=== PATIENT | female | born 1990 | race Caucasian/White ===

== ENCOUNTER 2016-06-15 22:50 | Outpatient (CLI) | payer SELFPAY ==
[~2016-06-15] VITALS: Ht 162.6 cm; Wt 103.4 kg
[2016-06-15 23:09] VITALS: Ht 162.6 cm; Wt 103.4 kg
[2016-06-15] MEDS ORDERED: FOLI0.8C PO (23:09)
[2016-06-15] MEDS ORDERED: PREN1TAB79 PO (23:09)
[2016-06-15 23:10] VITALS: BP 113/59; PULSE 77; RESP 20
[2016-06-16 00:20] LABS: ADD UMIC YES; URINE BILIRUBIN (Dip) NEGATIVE (NEGATIVE); URINE BLOOD (Dip) TRACE (NEGATIVE); URINE COLOR LT. YELLOW (YELLOW); URINE GLUCOSE (Dip) NEGATIVE (NEGATIVE); URINE KETONES (Dip) NEGATIVE (NEGATIVE); URINE LEUKOCYTE ESTERASE (Dip) TRACE (NEGATIVE); URINE NITRITE (Dip) NEGATIVE (NEGATIVE); URINE TOTAL PROTEIN (Dip) NEGATIVE (NEGATIVE); URINE UROBILINOGEN (Dip) 0.2 E.U./dL (0.1-1.0)
[2016-06-16 00:27] LABS: BACTERIA,URINE RARE; SQUAMOUS EPITHELIAL CELL,UR RARE; URINE RBCS 0-2 /HPF (0)
[2016-06-16 00:57] LABS: BASOPHILS % 0.3 % (0.0-2.0); EOSINOPHILS # 0.1 10^3/ul (0.0-0.5); EOSINOPHILS % 0.5 % (0.0-7.0); HEMATOCRIT 33.8 % (37.0-47.0); HEMOGLOBIN 11.2 g/dl (12.0-16.0); MEAN CORPUSCULAR HEMOGLOBIN 26.4 pg (29.0-33.0); MEAN CORPUSCULAR HGB CONC 33.2 g/dl (32.0-37.0); MEAN CORPUSCULAR VOLUME 79.3 fl (82.0-101.0); MEAN PLATELET VOLUME 8.6 fl (7.4-10.4); MONOCYTE # 0.7 10^3/ul (0.3-0.9); MONOCYTES % 6.5 % (0.0-11.0); NEUTROPHIL # 7.6 10^3/ul (1.6-7.5); NEUTROPHILS % 73.7 % (39.0-77.0); PLATELET COUNT 243 10^3/UL (140-440); RED BLOOD COUNT 4.26 10^6/ul (4.20-5.40); RED CELL DISTRIBUTION WIDTH 15.4 % (11.5-14.5); UNCORRECTED WBC 10.3 10^3/ul (4.8-10.8); WHITE BLOOD COUNT 10.3 10^3/ul (4.8-10.8)
[2016-06-16 01:01] LABS: CONDITION 1; LH ANALYZER COMMENTS 1
--- NOTE | 2016-06-16 01:51 | RADRPT ---
PROCEDURE: Obstetrical ultrasound, limited. CLINICAL INDICATION: Pelvic pain. TECHNIQUE: Multiple sonographic images of the pelvis were obtained using transabdominal technique . Images were obtained with baird scale and color Doppler. The images were reviewed on a PACS works tation. COMPARISON: No prior studies are available for comparison. FINDINGS: There is a single living intrauterine gestation with the fetus in a vertex presentation. hear t tones of 141 beats per minute are identified. The placenta is posterior in location, grade 1-2. There is normal amniotic fluid volume with an TONI of 13.2 cm. There is no evidence of placenta prev ia or abruption. Measurements were made in order to determine age. The results are as follows: BPD =8.23 cm HC =31.53 cm AC =32.67 cm FL =6.95 cm. Estimated gestational age of approximately 35 weeks and 2 days. The estimated date of delivery is 07/19/2016. The EFW = 3776 +/- 416 grams. Estimated weight percentage equals 60.1%. IMPRESSION: Single viable intrauterine gestation of approximately 35 weeks and 2 days, with an ultrasound DREA of 07/19/2016. .Mike Peter MD, MD Date Time Electronically viewed and signed by .Mike Peter MD, MD on 06/16/2016 01:51 .T/
== END 2016-06-16 02:38 | disposition home or self-care (01) ==
LOC: L-D 22:50 → OBT 22:50
PROVIDERS: ATTEND Obstetrics & Gynecology
DX: O26.893 Other specified pregnancy related conditions, third trimester (principal); M54.9 Dorsalgia, unspecified; R10.2 Pelvic and perineal pain; O60.03 Preterm labor without delivery, third trimester; Z3A.35 35 weeks gestation of pregnancy
CPT/HCPCS: 76815; 81001; 85025; G0463; 81003

== ENCOUNTER 2016-07-17 13:46 | Outpatient (CLI) | payer MEDICAID ==
[~2016-07-17] VITALS: Ht 160 cm; Wt 107.3 kg
[~2016-07-17 13:46] MED LIST: FOLI0.8C PO; PREN1TAB79 PO
[2016-07-17 14:04] VITALS: Ht 160 cm; Wt 107.3 kg
--- NOTE | 2016-07-18 04:01 | PN ---
DATE: SUBJECTIVE: A 25-year-old at 39 weeks complaining of uterine contractions. OBJECTIVE: NST is reactive. Vitals within normal limits. ASSESSMENT: End-stage at 39 weeks, false labor. PLAN: The patient will be discharged home. Follow up with [facility] within 1 week. Dictated By: DEVENDRA PLASENCIA MD /NTS Conf#: [id number] DID#: [id number]
== END 2016-07-17 15:35 | disposition home or self-care (01) ==
LOC: OBT 13:46 → L-D 13:46 → OBT 15:35
PROVIDERS: ATTEND Obstetrics & Gynecology
DX: O47.1 False labor at or after 37 completed weeks of gestation (principal); Z3A.39 39 weeks gestation of pregnancy
CPT/HCPCS: G0463

== ENCOUNTER 2016-07-18 18:59 | Outpatient (CLI) | payer MEDICAID ==
[~2016-07-18] VITALS: Ht 165.1 cm; Wt 108.0 kg
[2016-07-18 19:28] VITALS: Ht 165.1 cm; Wt 108.0 kg
[2016-07-18 19:29] VITALS: BP 109/66; PULSE 78; RESP 18
[2016-07-18 20:50] LABS: BASOPHILS % 0.3 % (0.0-2.0); EOSINOPHILS # 0.1 10^3/ul (0.0-0.5); EOSINOPHILS % 0.9 % (0.0-7.0); HEMATOCRIT 34.4 % (37.0-47.0); HEMOGLOBIN 11.5 g/dl (12.0-16.0); LYMPHOCYTES # 1.8 10^3/ul (0.8-2.9); LYMPHOCYTES % 18.7 % (15.0-51.0); MEAN CORPUSCULAR HEMOGLOBIN 26.4 pg (29.0-33.0); MEAN CORPUSCULAR HGB CONC 33.3 g/dl (32.0-37.0); MEAN CORPUSCULAR VOLUME 79.2 fl (82.0-101.0); MEAN PLATELET VOLUME 8.7 fl (7.4-10.4); MONOCYTE # 0.7 10^3/ul (0.3-0.9); NEUTROPHIL # 6.9 10^3/ul (1.6-7.5); NEUTROPHILS % 73.1 % (39.0-77.0); PLATELET COUNT 214 10^3/UL (140-440); RED BLOOD COUNT 4.34 10^6/ul (4.20-5.40); RED CELL DISTRIBUTION WIDTH 16.4 % (11.5-14.5); UNCORRECTED WBC 9.4 10^3/ul (4.8-10.8); WHITE BLOOD COUNT 9.4 10^3/ul (4.8-10.8)
[2016-07-18 20:56] LABS: CONDITION 1; LH ANALYZER COMMENTS 1
[2016-07-18] MEDS ORDERED: LACTATED RINGER'S 1,000 ML IV SCH (21:00)
--- NOTE | 2016-07-18 22:09 | RADRPT ---
PROCEDURE: US OB. CLINICAL INDICATION: Uterine contractions TECHNIQUE: Pelvic ultrasound performed for biophysical profile. COMPARISON: 06/16/2016 FINDINGS: Single intrauterine gestation present with heart rate at 146 beats per minute. Presentation is ceph alic. Placenta is the fundal, grade II. Biophysical profile score is 8/8 (breathing=2, movement=2, tone =2, fluid volume=2). Amniotic fluid volume is within lower normal limits, with TONI = 7.38 cm. RPTAT:HJJR IMPRESSION: Biophysical profile score 8/8. Amniotic fluid index is low normal at 7.38 cm, previously 13.16 cm on the study of 06/16/2016. Physician Janee Date Time Electronically viewed and signed by Augustine Heredia Physician on 07/18/2016 22:09 /
--- NOTE | 2016-07-18 22:33 | RADRPT ---
PROCEDURE: Obstetrical ultrasound greater than 14 weeks CLINICAL INDICATION: Bleeding TECHNIQUE: Real time sonographic imaging of the gravid uterus is performed transabdominally and mu ltiple static baird scale and Doppler images are submitted for review as are measurements. The image s are reviewed on the PACS. COMPARISON: 06/16/2016 FINDINGS: There is a single living intrauterine gestation in cephalic presentation. The heart beat is estimated at 148 bpm. The measurements are as follows: BPD:9.10 cm HC:33.89 cm AC:34.76 cm FL:7.31 cm Estimated gestational age is 38 weeks 1 day, appropriate growth compared to the prior study. The es timated date of delivery is 07/31/2016. The estimated weight is 3456 grams. Placenta is fundal and grade2. There is no evidence of placenta previa or abruption. anatomic survey is performed and shows no abnormality, the three-vessel cord and cord insertio n are unremarkable. The amniotic fluid index is normal estimated at 7.78 cm. RPTAT:HJJR IMPRESSION: 1. Single viable intrauterine gestation in cephalic presentation estimated at 38 weeks 1 day with th e estimated date of delivery 07/31/2016. 2. Estimated weight 3456 g, approximately the 36th percentile for age. Physician Janee Date Time Electronically viewed and signed by Physician Janee on 07/18/2016 22:32 /
--- NOTE | 2016-07-19 00:55 | TRIAGE ---
OB Triage Datetime Report Generated by CPN: 07/19/2016 00:55 Datetime: 07/18/2016 23:00 Stage of : OB Triage Labor Evaluation Frequency: IRREGULAR Monitor Mode: External Duration (sec)2399: 60-100 Quality: Mild Pattern: Normal: <= 5 Contractions in 10 Minutes Resting Tone [place]: Relaxed Heart Rate FHR Baseline Rate: 135 Monitor Mode: External US FHR Baseline Changes: No Baseline Change Variability: Moderate 6-25 bpm Accelerations: 15X15 Decelerations: None Category: Category I Datetime: 07/18/2016 22:39 Stage of : OB Triage Datetime: 07/18/2016 22:24 Vaginal Exam Dilatation (cms): 1.0 Effacement (%): 30 Station: -3 Exam By: Kimberlyn JOHNSON RN Vaginal Bleeding: Scant Cervix, Consistency: Firm Cervix, Position: Posterior Datetime: 07/18/2016 22:00 Stage of : OB Triage Labor Evaluation Frequency: IRREGULAR Monitor Mode: External Duration (sec)2399: 60-100 Quality: Mild Pattern: Normal: <= 5 Contractions in 10 Minutes Resting Tone [place]: Relaxed Heart Rate FHR Baseline Rate: 135 Monitor Mode: External US FHR Baseline Changes: No Baseline Change Variability: Moderate 6-25 bpm Accelerations: 15X15 Decelerations: None Category: Category I Datetime: 07/18/2016 21:00 Labor Evaluation Frequency: IRREGULAR Monitor Mode: External Duration (sec)2399: 60-100 Quality: Mild Pattern: Normal: <= 5 Contractions in 10 Minutes Resting Tone [place]: Relaxed Heart Rate FHR Baseline Rate: 135 Monitor Mode: External US FHR Baseline Changes: No Baseline Change Variability: Moderate 6-25 bpm Accelerations: 15X15 Decelerations: None Category: Category I Datetime: 07/18/2016 20:03 Stage of : OB Triage Datetime: 07/18/2016 20:00 Labor Evaluation Frequency: 1-4 Monitor Mode: External Duration (sec)2399: 60-120 Quality: Mild Pattern: Normal: <= 5 Contractions in 10 Minutes Resting Tone [place]: Relaxed Heart Rate FHR Baseline Rate: 125 Monitor Mode: External US FHR Baseline Changes: No Baseline Change Variability: Moderate 6-25 bpm Accelerations: 15X15 Decelerations: None Category: Category I Datetime: 07/18/2016 19:46 Stage of : OB Triage Datetime: 07/18/2016 19:15 Stage of : OB Triage Assessment Type: Triage Time of Arrival: 07/18/2016 19:00 EGA: 40.0 Arrived By: Wheelchair Arrived From: Home Chief Complaint: C/O BLEEDING SINCE YESTERDAY MUCH A PERIOD VAGINAL EXAM NOT DONE @ THIS LEAT[facility] E , NO BLOOD NOTED ON PERINEUM , C/O CONTRACTIONS Movement: Present Contractions: Irregular Rupture of Membranes: Denies Vaginal Bleeding: None Vaginal Discharge: Present Recent Sexual Intercouse: Denies Abdominal Trauma: Not Applicable Patient Complaints: None Time Provider Notified: 07/18/2016 19:46 Provider Notified: DR LINO Initial Plan: CALL [facility] Maternal Assessment Level of Consciousness: Fully Conscious DTR's/Clonus: DTRs 2+; No Clonus Headache: Denies Blurred Vision: No Respiratory Effort: Unlabored; Regular Rhythm; Equal Expansion Breath Sounds, Left: Clear and Equal Breath Sounds, Right: Clear and Equal Nausea/Vomiting: Denies RUQ Epigastric Pain: Denies Lower Extremities Edema: None Degree: None Upper Extremities Edema: None Degree: None Facial Edema: None Temperature Route: Oral Fall Risk Assessment History of Falling: (0) No Secondary Diagnosis: (0) No Ambulatory Aid: (0) Bedrest/Nurse Assist IV Therapy: (0) No Gait: (0) Normal/Bedrest/Immobile Mental Status: (0) Oriented to Own Ability Fall Score: 0 Fall Risk Score Definition: No Risk: No action required Monitor Mode: External Monitor Mode: External US Pain Assessment Pain Scale: 8 Pain Presence: Intermittent Pain Type: Cramping Pain Location: Abdomen; Back Datetime: 07/17/2016 15:25 Stage of : OB Triage Datetime: 07/17/2016 15:18 Vaginal Exam Dilatation (cms): 1.0 Effacement (%): 60 Station: -2 Exam By: Perlita TAYLOR Vaginal Bleeding: None Cervix, Consistency: Soft Cervix, Position: Posterior Presentation 'A': Cephalic Datetime: 07/17/2016 14:55 Labor Evaluation Frequency: OCCAS Monitor Mode: External Duration (sec)2399: 50-60 Pattern: Normal: <= 5 Contractions in 10 Minutes Resting Tone [place]: Relaxed Heart Rate FHR Baseline Rate: 135 Monitor Mode: External US Variability: Moderate 6-25 bpm Decelerations: None Category: Category I Pain Assessment Pain Scale: 5 Pain Presence: Intermittent Pain Type: Cramping Pain Goal: 3 Pain Relief Measures: Comfort Measures Datetime: 07/17/2016 14:27 Stage of : OB Triage Datetime: 07/17/2016 13:58 Stage of : OB Triage Assessment Type: Triage Maternal Assessment Level of Consciousness: Fully Conscious DTR's/Clonus: DTRs 2+; No Clonus Headache: Denies Blurred Vision: No Respiratory Effort: Unlabored; Regular Rhythm; Equal Expansion Breath Sounds, Left: Clear and Equal Breath Sounds, Right: Clear and Equal Nausea/Vomiting: Denies RUQ Epigastric Pain: Denies Facial Edema: None Temperature Route: Axillary Fall Risk Assessment History of Falling: (0) No Secondary Diagnosis: (0) No Ambulatory Aid: (0) Bedrest/Nurse Assist IV Therapy: (0) No Gait: (0) Normal/Bedrest/Immobile Mental Status: (0) Oriented to Own Ability Fall Score: 0 Fall Risk Score Definition: No Risk: No action required Labor Evaluation Frequency: APPLIED Monitor Mode: External Resting Tone [place]: Relaxed Interventions: Sterile Vaginal Exam Heart Rate FHR Baseline Rate: 135 Monitor Mode: External US Variability: Moderate 6-25 bpm Decelerations: None Category: Category I Pain Assessment Pain Scale: 6 Pain Presence: Intermittent Pain Type: Cramping; Contraction Pain Location: Abdomen Pain Goal: 3 Pain Relief Measures: Comfort Measures Vaginal Exam Dilatation (cms): 1.0 Effacement (%): 60 Station: -2 Exam By: Perlita CLAUDIA Membrane Status: Intact Datetime: 07/17/2016 13:56 Time of Arrival: 07/17/2016 13:45 EGA: 39.6 Arrived By: Ambulatory Arrived From: Home Chief Complaint: C/O UC'S Q 10 SINCE YESTERDAY AFTERNOON, BLEEDING, DENIES LEAKING OF FLUID Movement: Present Contractions: Regular Contractions: Q10 Rupture of Membranes: Denies Vaginal Bleeding: Small Vaginal Discharge: Denies Recent Sexual Intercouse: Denies Abdominal Trauma: Not Applicable Patient Complaints: Contractions; Cramping Time Provider Notified: 07/17/2016 14:27 Provider Notified: HO[place] Initial Plan: MONITOR, VE, OBS X 1 HOUR Datetime: 06/16/2016 02:23 Stage of : OB Triage Labor Evaluation Frequency: Irregular Monitor Mode: External Duration (sec)2399: 40-70 Quality: Mild Pattern: Normal: <= 5 Contractions in 10 Minutes Resting Tone [place]: Relaxed Heart Rate FHR Baseline Rate: 120 Monitor Mode: External US FHR Baseline Changes: No Baseline Change Variability: Minimal - Undetectable to <=5 bpm Accelerations: 15X15 Decelerations: Variable Category: Category II Datetime: 06/16/2016 02:02 Stage of : OB Triage Datetime: 06/16/2016 02:00 Vaginal Exam Dilatation (cms): 0.0 Effacement (%): 0 Station: -4 Exam By: BELLE [place] Membrane Status: Intact Vaginal Bleeding: None Cervix, Consistency: Soft Cervix, Position: Posterior Datetime: 06/16/2016 01:30 Stage of : OB Triage Labor Evaluation Frequency: Occasional Monitor Mode: External Duration (sec)2399: 40-60 Quality: Mild Pattern: Normal: <= 5 Contractions in 10 Minutes Resting Tone [place]: Relaxed Heart Rate FHR Baseline Rate: 120 Monitor Mode: External US FHR Baseline Changes: No Baseline Change Variability: Moderate 6-25 bpm Accelerations: 15X15 Decelerations: None Category: Category I Datetime: 06/16/2016 00:30 Stage of : OB Triage Labor Evaluation Frequency: Occasional Monitor Mode: External Duration (sec)2399: 40-60 Quality: Mild Pattern: Normal: <= 5 Contractions in 10 Minutes Resting Tone [place]: Relaxed Heart Rate FHR Baseline Rate: 120 Monitor Mode: External US FHR Baseline Changes: No Baseline Change Variability: Moderate 6-25 bpm Accelerations: 15X15 Decelerations: None Category: Category I Datetime: 06/15/2016 23:40 Stage of : OB Triage Datetime: 06/15/2016 23:30 Stage of : OB Triage Labor Evaluation Frequency: x1 Monitor Mode: External Duration (sec)2399: 40 Quality: Mild Pattern: Normal: <= 5 Contractions in 10 Minutes Resting Tone [place]: Relaxed Heart Rate FHR Baseline Rate: 120 Monitor Mode: External US Variability: Minimal - Undetectable to <=5 bpm Accelerations: 15X15 Decelerations: None Category: Category II Datetime: 06/15/2016 23:06 Membrane Status: Intact Datetime: 06/15/2016 23:04 Stage of : OB Triage Assessment Type: Triage Maternal Assessment Level of Consciousness: Fully Conscious DTR's/Clonus: DTRs 2+; No Clonus Headache: Denies Blurred Vision: No Respiratory Effort: Unlabored; Regular Rhythm; Equal Expansion Breath Sounds, Left: Clear and Equal Breath Sounds, Right: Clear and Equal Nausea/Vomiting: Denies RUQ Epigastric Pain: Denies Lower Extremities Edema: None Degree: None Upper Extremities Edema: None Degree: None Facial Edema: None Temperature Route: Oral Fall Risk Assessment History of Falling: (0) No Secondary Diagnosis: (0) No Ambulatory Aid: (0) Bedrest/Nurse Assist IV Therapy: (0) No Gait: (0) Normal/Bedrest/Immobile Mental Status: (0) Oriented to Own Ability Fall Score: 0 Fall Risk Score Definition: No Risk: No action required Pain Assessment Pain Scale: 8 Pain Presence: Constant Pain Type: Ache Pain Location: Back Pain Relief Measures: Comfort Measures Datetime: 06/15/2016 23:02 EGA: 35.2 Datetime: 06/15/2016 22:59 Time of Arrival: 06/15/2016 22:45 Arrived By: Ambulatory Arrived From: Home Chief Complaint: Constant back pain Movement: Present Contractions: Denies/Absent Rupture of Membranes: Denies Vaginal Bleeding: None Vaginal Discharge: Denies Recent Sexual Intercouse: Denies Abdominal Trauma: Not Applicable Patient Complaints: Back Pain Time Provider Notified: 06/15/2016 23:40 Provider Notified: Initial Plan: UA, CBC, U/S for EFW _ TONI Datetime: 06/15/2016 22:57 Stage of : OB Triage Monitor Mode: External Contraction Comments: [place] applied Heart Rate FHR Baseline Rate: 120 Monitor Mode: External US Comments: EFM applied
== END 2016-07-18 22:39 | disposition home or self-care (01) ==
LOC: OBT 18:59 → L-D 19:00 → OBT 22:39
PROVIDERS: ATTEND Obstetrics & Gynecology
DX: O47.1 False labor at or after 37 completed weeks of gestation (principal); Z3A.40 40 weeks gestation of pregnancy
CPT/HCPCS: 36415; 76815; 76818; 85025; 85384; 96360; J7120; Z7500; G0463

== ENCOUNTER 2016-07-21 15:40 | Inpatient (IN) | payer MEDICAID ==
[~2016-07-21] VITALS: Ht 162.6 cm; Wt 109.0 kg
[2016-07-21 15:57] VITALS: BP 114/63; PULSE 81; RESP 18; Ht 162.6 cm; Wt 109.0 kg
--- NOTE | 2016-07-21 17:11 | TRIAGE ---
OB Triage Datetime Report Generated by CPN: 07/21/2016 17:10 Datetime: 07/21/2016 16:30 Stage of : OB Triage Maternal Assessment Level of Consciousness: Fully Conscious Labor Evaluation Frequency: IRREGULAR Monitor Mode: External Duration (sec)2399: 30-60 Quality: Moderate Resting Tone [place]: Relaxed Heart Rate FHR Baseline Rate: 135 Monitor Mode: External US Variability: Moderate 6-25 bpm Accelerations: 15X15 Decelerations: None Pain Assessment Pain Scale: 5 Pain Presence: Intermittent Pain Type: Cramping Pain Location: Abdomen Pain Goal: 3 Pain Relief Measures: Comfort Measures Membrane Status: Intact Vaginal Bleeding: None Datetime: 07/21/2016 16:02 Vaginal Exam Dilatation (cms): 2.0 Effacement (%): 60 Station: -2 Exam By: preston Vaginal Bleeding: None Cervix, Consistency: Moderate Cervix, Position: Midposition Datetime: 07/21/2016 15:54 Assessment Type: Triage Maternal Assessment Level of Consciousness: Fully Conscious DTR's/Clonus: DTRs 2+; No Clonus Headache: Denies Blurred Vision: No Respiratory Effort: Unlabored; Regular Rhythm; Equal Expansion Breath Sounds, Left: Clear and Equal Breath Sounds, Right: Clear and Equal Nausea/Vomiting: Denies RUQ Epigastric Pain: Denies Lower Extremities Edema: None Degree: None Upper Extremities Edema: None Degree: None Facial Edema: None Fall Risk Assessment History of Falling: (0) No Secondary Diagnosis: (0) No Ambulatory Aid: (0) Bedrest/Nurse Assist IV Therapy: (0) No Gait: (0) Normal/Bedrest/Immobile Mental Status: (0) Oriented to Own Ability Fall Score: 0 Fall Risk Score Definition: No Risk: No action required Datetime: 07/21/2016 15:53 Time of Arrival: 07/21/2016 15:35 EGA: 40.3 Arrived By: Ambulatory Arrived From: Home Chief Complaint: c/o UC'S AND VAG. SPOTTING Movement: Present Contractions: Irregular Time Contractions Began: 07/21/2016 03:00 Rupture of Membranes: Denies Vaginal Discharge: Denies Recent Sexual Intercouse: Denies Abdominal Trauma: Not Applicable Patient Complaints: Contractions; Cramping; Back Pain Provider Notified: [facility] Initial Plan: EFM, SVE, BPP Datetime: 07/18/2016 19:15 EGA: 40.0 Fall Score: 0 Fall Risk Score Definition: No Risk: No action required Datetime: 07/17/2016 13:58 Fall Score: 0 Fall Risk Score Definition: No Risk: No action required Datetime: 07/17/2016 13:56 EGA: 39.6 Datetime: 06/15/2016 23:04 Fall Score: 0 Fall Risk Score Definition: No Risk: No action required Datetime: 06/15/2016 23:02 EGA: 35.2
--- NOTE | 2016-07-21 17:16 | RADRPT ---
PROCEDURE: OB ultrasound for biophysical profile CLINICAL INDICATION: Biophysical profile. . TECHNIQUE: Multiple sonographic images of the pelvis were obtained. Transabdominal view of the gr avid uterus are available for review. The images were reviewed on a PACS workstation. COMPARISON: OB ultrasound 07/18/2016 FINDINGS: Single intrauterine gestation. Presentation: cephalic. Placenta: Fundal - right breathing movement = 2/2 tone = 2/2 motion = 2/2 TONI = 2/2 TONI = 9.8 cm heart rate: 150 beats per minute IMPRESSION: Single intrauterine gestation. Biophysical profile 01/18, unchanged RPTAT: AADD .Arnulfo Davis MD, MD Date Time Electronically viewed and signed by .Arnulfo Davis MD, on 07/21/2016 17:15 .B/
[2016-07-21] MEDS ORDERED: LACTATED RINGER'S 1,000 ML IV PRN (17:38)
[2016-07-21] MEDS: LACTATED RINGER'S 1,000 ML IV SCH ×2 (17:55→21:47)
[2016-07-21] MEDS ORDERED: MISOPROSTOL 200 MCG TAB PR PRN (18:00)
[2016-07-21] MEDS ORDERED: OXYTOCIN 30 UNITS/LR 500 ML IV PRN (18:00)
[2016-07-21] MEDS ORDERED: METHYLERGONOVINE 0.2 MG INJ IM PRN (18:00)
[2016-07-21] MEDS ORDERED: OXYTOCIN 30 UNITS/LR 500 ML IV SCH ×2 (18:00)
[2016-07-21] MEDS ORDERED: IBUPROFEN 600 MG TAB PO PRN (18:00)
[2016-07-21] MEDS ORDERED: LIDOCAINE 1% (MPF) 30 ML INJ INJ PRN (18:00)
[2016-07-21] MEDS ORDERED: CARBOPROST 250 MCG INJ IM PRN (18:00)
[2016-07-21] MEDS ORDERED: BUTORPHANOL 2 MG INJ IV PRN (18:00)
[2016-07-21 18:15] LABS: BASOPHILS % 0.4 % (0.0-2.0); EOSINOPHILS # 0.1 10^3/ul (0.0-0.5); EOSINOPHILS % 0.8 % (0.0-7.0); HEMATOCRIT 35.5 % (37.0-47.0); HEMOGLOBIN 11.8 g/dl (12.0-16.0); LYMPHOCYTES # 1.6 10^3/ul (0.8-2.9); LYMPHOCYTES % 19.2 % (15.0-51.0); MEAN CORPUSCULAR HEMOGLOBIN 26.5 pg (29.0-33.0); MEAN CORPUSCULAR HGB CONC 33.3 g/dl (32.0-37.0); MEAN CORPUSCULAR VOLUME 79.5 fl (82.0-101.0); MEAN PLATELET VOLUME 8.5 fl (7.4-10.4); MONOCYTE # 0.6 10^3/ul (0.3-0.9); MONOCYTES % 7.1 % (0.0-11.0); NEUTROPHILS % 72.5 % (39.0-77.0); PLATELET COUNT 209 10^3/UL (140-440); RED BLOOD COUNT 4.46 10^6/ul (4.20-5.40); RED CELL DISTRIBUTION WIDTH 16.4 % (11.5-14.5); UNCORRECTED WBC 8.3 10^3/ul (4.8-10.8); WHITE BLOOD COUNT 8.3 10^3/ul (4.8-10.8)
[2016-07-21 18:16] LABS: CONDITION 1; LH ANALYZER COMMENTS 1
[2016-07-21 18:35] LABS: INR 0.93; PARTIAL THROMBOPLASTIN TIME 28.2 Sec (25.0-35.0); PROTIME 12.5 Sec (12.2-14.2)
[2016-07-21] MEDS ORDERED: FENTAnyl 2MCG/ML-ROPIV 0.2% 100 ML ONE (20:07)
[2016-07-21] MEDS ORDERED: NALOXONE (0.4 MG/ML) INJ IV PRN (21:30)
[2016-07-22] MEDS: FENTAnyl 2MCG/ML-ROPIV 0.2% 100 ML BAG EPI SCH ×2 (00:44→06:07)
[2016-07-22] MEDS: LACTATED RINGER'S 1,000 ML IV SCH (04:24)
--- NOTE | 2016-07-22 08:26 | HP ---
Date/Time of Note Date/Time of Note DATE: 07/22/16 TIME: 08:23 OB - History Hx of Present Chief Complaint: contractions Last Menstrual Period: October 12, 2015 Estimated Due Date: Jul 18, 2016 : 2 Para: 1 Spontaneous : 0 Therapeutic : 0 Care: Good Care Ultrasounds: Normal mid trimester US Obstetrical Complications: None Medical Complications: None Past Family/Social History * Past Medical, Surgical, Family and Obstetric Histories reviewed from chart. GBS Status: Negative OB Admission Exam Vital Signs Vital Signs Vital Signs Date Time Temp Pulse Resp B/P Pulse Ox O2 Delivery O2 Flow Rate FiO2 07/21/16 15:57 98.3 81 18 114/63 98 Room Air Physical Exam HEENT: WNL Heart: Rhythm Normal Lungs: Clear Abdomen: WNL Extremities: Normal Cervical Dilatation: 3cm Effacement: 50% Station: -1 Membranes: Intact Heart Rate: 130's Accelerations: Accelerations Present Decelerations: No Decelerations Varibility: Moderate Last 72 hours Lab Results CBC & BMP 07/21/16 18:00 OB Assessment/Plan Reason for admission: active labor Plan: Expectant Management JONG SALAZAR MD Jul 22, 2016 08:26
--- NOTE | 2016-07-22 08:28 | LDN ---
Date/Time of Note Date/Time of Note DATE: 07/22/16 TIME: 08:26 Delivery Summary over intact perineum Placenta Delivered: Spontaneously Meconium: Light Perineum intact?: No Anesthesia type: Epidural Estimated blood loss: 300 Sponge & Needle done & correct: Yes All needle counts correct: Yes Any foreign bodies felt in the: No Problems: Delivery Information Sex Infant Sex: female Apgars 1 Minute: 9 5 Minute: 9 Suctioning Nose & mouth suctioned at emeli: Yes Delee suction performed: No Umbilical Cord Umbilical cord with: 3 Vessels Cord presentations: no nuchal cord Cord Blood was obtained: Yes Mother & Baby Disposition Disposition Mom & Baby to Maternity; Good: Yes JONG SALAZAR MD Jul 22, 2016 08:28
[2016-07-22] MEDS ORDERED: LACTATED RINGER'S 1,000 ML IV* SCH (09:58)
[2016-07-22] MEDS ORDERED: ACETAMINOPHEN 325 MG TAB PO PRN (10:00)
[2016-07-22] MEDS ORDERED: WITCH HAZEL/GLYCERIN PAD PR PRN (10:00)
[2016-07-22] MEDS ORDERED: ACETAMINOPHEN/CODEINE #3 TAB PO PRN (10:00)
[2016-07-22] MEDS ORDERED: METHYLERGONOVINE 0.2 MG INJ IM PRN (10:00)
[2016-07-22] MEDS ORDERED: DIBUCAINE 1% 30 GM OINT PR PRN (10:00)
[2016-07-22] MEDS ORDERED: OXYTOCIN 30 UNITS/LR 500 ML IV PRN (10:00)
[2016-07-22] MEDS ORDERED: MISOPROSTOL 200 MCG TAB PR PRN (10:00)
[2016-07-22] MEDS ORDERED: CARBOPROST 250 MCG INJ IM PRN (10:00)
[2016-07-22] MEDS ORDERED: BENZOCAINE 20% 56 ML SPRAY TOP PRN (10:00)
[2016-07-22 10:30] VITALS: BP 117/82; PULSE 94; RESP 18
[2016-07-22] MEDS: IBUPROFEN 600 MG TAB PO SCH ×2 (11:29→17:48)
[2016-07-22 11:30] VITALS: BP 123/73; PULSE 80; RESP 18
[2016-07-22 16:05] VITALS: BP 111/84; PULSE 87; RESP 17
[2016-07-22 19:45] VITALS: BP 101/65; RESP 19
[2016-07-22] MEDS: SENNA/DOCUSATE NA (8.6MG/50MG) TAB PO SCH (20:57)
[2016-07-23] MEDS: IBUPROFEN 600 MG TAB PO SCH ×5 (00:01→23:48)
[2016-07-23 00:05] VITALS: BP 111/69; PULSE 98; RESP 19
[2016-07-23 04:10] VITALS: BP 101/54; PULSE 65; RESP 18
[2016-07-23 06:36] LABS: ADD SCAN DIFF NO
[2016-07-23 06:39] LABS: BASOPHILS % 0.2 % (0.0-2.0); EOSINOPHILS # 0.1 10^3/ul (0.0-0.5); EOSINOPHILS % 0.9 % (0.0-7.0); HEMATOCRIT 28.5 % (37.0-47.0); HEMOGLOBIN 9.1 g/dl (12.0-16.0); LYMPHOCYTES # 2.3 10^3/ul (0.8-2.9); MEAN CORPUSCULAR HEMOGLOBIN 26.5 pg (29.0-33.0); MEAN CORPUSCULAR HGB CONC 31.9 g/dl (32.0-37.0); MEAN CORPUSCULAR VOLUME 82.8 fl (82.0-101.0); MEAN PLATELET VOLUME 10.7 fl (7.4-10.4); MONOCYTE # 0.8 10^3/ul (0.3-0.9); MONOCYTES % 6.9 % (0.0-11.0); NEUTROPHIL # 7.6 10^3/ul (1.6-7.5); NEUTROPHILS % 69.8 % (39.0-77.0); PLATELET COUNT 172 10^3/UL (140-415); RED BLOOD COUNT 3.44 10^6/ul (4.20-5.40); RED CELL DISTRIBUTION WIDTH 16.3 % (11.5-14.5); WHITE BLOOD COUNT 10.9 10^3/ul (4.8-10.8)
[2016-07-23 09:15] VITALS: BP 100/66; PULSE 90; RESP 18
[2016-07-23] MEDS: SENNA/DOCUSATE NA (8.6MG/50MG) TAB PO SCH ×2 (09:44→21:40)
--- NOTE | 2016-07-23 12:34 | QN ---
Documentation Comment PPD#1 is stable afebrile tolerates diet No VB +BM +Voids No sign of Depression VS stable Gen NAD Abd Soft NT ND No blood at perinium --->Discharge plan tomorrow --->Ambulation SVEN VALVERDE M.D. Jul 23, 2016 12:34
[2016-07-23 19:40] VITALS: BP 114/64; PULSE 84; RESP 19
[2016-07-24 03:40] VITALS: BP 109/65; PULSE 74; RESP 18
[2016-07-24] MEDS: IBUPROFEN 600 MG TAB PO SCH ×2 (05:40→11:46)
[2016-07-24 08:00] VITALS: BP 123/77; PULSE 82; RESP 18
[2016-07-24] MEDS ORDERED: DIPHTH/TET/ACEL PERTUSS (ADULT) 0.5 ML VIAL IM* ONE (09:00)
[2016-07-24] MEDS: SENNA/DOCUSATE NA (8.6MG/50MG) TAB PO SCH (09:36)
--- NOTE | 2016-07-24 13:45 | DS ---
Date/Time of Note Date/Time of Note DATE: 07/24/16 TIME: 13:44 Obstetrical Discharge Record Final Diagnosis Final Diagnosis: Term delivered Vaginal Delivery Obstetrical Delivery: Spontaneous, Laceration, Repaired Complications Augmentation: No Induction: No Condition on Discharge Physical Assessment Voiding: Yes Bowel Movement: Yes Breast: Soft, non-tender Fundus: Firm Calf Tenderness: No Patient Condition: Stable JONG SALAZAR MD Jul 24, 2016 13:45
== END 2016-07-24 15:45 | disposition home or self-care (01) | DRG 775 ==
LOC: OBT 15:40 → L-D 15:41 → OBT 17:05 → PP1 07-22 10:45
PROVIDERS: ADMIT Obstetrics & Gynecology; ATTEND Obstetrics & Gynecology
PROC: 10E0XZZ Delivery of Products of Conception, External Approach (ICD-10-PCS; principal; 2016-07-22)
PROC: 0WQNXZZ Repair Female Perineum, External Approach (ICD-10-PCS; 2016-07-22)
DX: O80 Encounter for full-term uncomplicated delivery (principal); O70.9 Perineal laceration during delivery, unspecified; Z3A.40 40 weeks gestation of pregnancy; Z37.0 Single live birth
CPT/HCPCS: 62319; 76818; 85025; 85610; 85730; 86592; 86900; 86901; 90715; G0463; J2590; J3010; J7120